=== PATIENT | female | born 1960 | race Caucasian/White ===

== ENCOUNTER 2020-05-12 17:32 | Emergency (ER) | payer OTHER, SELFPAY ==
--- NOTE | ~2020-05-12 | XR_ITS ---
EXAMINATION: XR femur LT min 2V INDICATION: Left femur pain TECHNIQUE: Two views of the left femur are obtained on four radiographs. COMPARISON: None available FINDINGS: Bone alignment is normal. There is no fracture. The soft tissues are unremarkable. There is mild osteoarthritis at the hip and knee. IMPRESSION: 1. No acute osseous abnormality. Reviewed, dictated and finalized at location A.
[2020-05-12 17:44] VITALS: BP 122/71; PULSE 78; RESP 18; TEMP 36.7; O2SAT 99
--- NOTE | 2020-05-12 18:15 | PC.NURSE ---
Patient taken to US prior to blood draw, will attempt to obtain blood when patient returns to room
[2020-05-12] MEDS: KETOROLAC (*BKC) 60 MG/2 ML VIAL IM (18:18)
--- NOTE | 2020-05-12 18:28 | ED.LOWEXIN ---
HPI - Extremity Injury (Lower) General Chief Complaint: Extremity Injury, Lower Stated Complaint: left thigh pain Time Seen by Provider: 05/12/20 17:49 Source: patient Mode of arrival: ambulatory Limitations: no limitations History of Present Illness HPI Narrative: This is a 59 year old female that presents to the ER for left thigh pain since an injury this afternoon. Reports she was using a Shayna to move cases of water. Reports the Shayna fell over onto her and landed on her left thigh. Reports since she has had pain in the thigh worse with movement and relived with rest. Denies hitting her head, loss of consciousness, other injuries or numbness. Related Data Home Medications Medication Instructions Recorded Confirmed phentermine 37.5 mg tablet 37.5 mg PO DAILY 09/17/19 Allergies Allergy/AdvReac Type Severity Reaction Status Date / Time No Known Allergies Allergy Verified 05/12/20 17:43 Review of Systems Review of Systems: Narrative: CONSTITUTIONAL: Denies fever MUSCULOSKELETAL: Reports myalgia. NEUROLOGIC: Denies numbness All systems reviewed & are unremarkable except as noted in HPI and below PMFSH Past Medical History Medical History (Updated 05/12/20 @ 20:05 by Monica Lucia PA-C) Acquired hypothyroidism Bilateral low back pain Depression GERD (gastroesophageal reflux disease) HLD (hyperlipidemia) Raynauds syndrome Social History Social History Smoking status: Former smoker Smoking end date: 11/17/10 Alcohol intake: current Gender identity (if verbalized by the patient): Female Exam Narrative: Exam Narrative: GENERAL: Well-appearing, well-nourished, and in no acute distress. HEAD: Normocephalic, atraumatic. EYES: EOMI. EXTREMITIES: Normal range of motion. No edema or obvious deformity. Normal DP pulses. Normal sensation. Compartments soft SKIN: Warm, dry, no rash. NEURO: No focal deficits. Alert and oriented x3. PSYCH: Normal mood and affect Course Vital Signs Vital signs: Vital Signs Temperature 98.1 F 05/12/20 17:44 Pulse Rate 78 05/12/20 17:44 Respiratory Rate 18 05/12/20 17:44 Blood Pressure 122/71 05/12/20 17:44 Pulse Oximetry 99 05/12/20 17:44 Temperature 98.1 F 05/12/20 17:44 Pulse Rate 78 05/12/20 17:44 Respiratory Rate 18 05/12/20 17:44 Blood Pressure 122/71 05/12/20 17:44 Pulse Oximetry 99 05/12/20 17:44 MDM - Extremity Injury (Lower) MDM Narrative Medical decision making narrative: Patient presents to the ER for left leg pain after an injury today. Patient is neurovascularly intact. Left femur x-rays without acute changes. Patient was instructed to rest, ice and take [id number] pain medication as needed. She is to follow-up with primary care doctor. She was given warnings to return to the ER Imaging Data Radiologist's impression: ITS Impressions Femur X-Ray 05/12/20 19:00 IMPRESSION: 1. No acute osseous abnormality. Critical Care Time Critical Care Time Critical Care Time: No Discharge Plan Discharge Clinical Impression: Leg pain, left Patient Disposition: Home, Self-Care Condition: Stable Instructions: Leg Pain (ED) Additional Instructions: Return to the emergency department if you experience fever, redness and swelling of your leg, numbness, or any other symptoms that are concerning to you Rest. Elevate. Ice to the area. [id number] pain medication as needed. Prescribed pain medication as needed Follow-up with your primary care doctor Prescriptions: No Action valacyclovir [Valtrex] 500 mg tablet 500 mg PO DAILY Qty: 14 RF: 0 estradiol 0.5 mg tablet 0.5 mg PO DAILY Qty: 90 RF: 0 phentermine 37.5 mg tablet 37.5 mg PO DAILY RF: 0 sertraline 100 mg tablet 100 mg PO DAILY Qty: 30 RF: 5 levothyroxine 25 mcg tablet 25 mcg PO DAILY Qty: 30 RF: 5 omeprazole 40 mg capsule,delaye
[2020-05-12 20:14] VITALS: BP 122/86; PULSE 76; RESP 20; O2SAT 98
== END 2020-05-12 20:16 | disposition home or self-care (01) ==
PROVIDERS: Emergency Provider Family Medicine; PCP Family Medicine
DX: M79.652 Pain in left thigh (principal); E03.9 Hypothyroidism, unspecified; K21.9 Gastro-esophageal reflux disease without esophagitis; E78.5 Hyperlipidemia, unspecified; I73.00 Raynaud's syndrome without gangrene; Z87.891 Personal history of nicotine dependence; W20.8XXA Other cause of strike by thrown, projected or falling object, initial encounter
CPT/HCPCS: 73552; 96372; 99283; J1885

== ENCOUNTER → 2021-03-19 14:56 | Outpatient (CLI) | payer OTHER, SELFPAY ==
--- NOTE | ~2021-03-19 | MR_ITS ---
EXAMINATION: MR lumbar spine wo con DATE: 03/19/2021 15:46 INDICATION: Lumbar radiculopathy. Chronic low back pain. TECHNIQUE: Magnetic resonance imaging (MRI) of the lumbar spine was performed without intravenous con trast. Sequences included sagittal T2-weighted FSE, sagittal STIR FSE, sagittal T1-weighted FSE, and axial T2-weighted FSE. COMPARISON: Lumbar spine MRI 08/31/2013 FINDINGS: There is 23 degrees dextroscoliosis of thoracolumbar spine. There is 3 mm retrolisthesis of T12 on L1 and L1 on L2. There are changes of anterior and posterior fusion procedures at L3-L4 with interbody devices and pedicle screws. There is severely decreased disc height from T12-L1 through L2- L3 and at L4-L5 and L5-S1. The distal spinal cord signal intensity is normal. The conus medullaris is at L1. The following disc levels are specifically discussed: L1-L2: The disc is bulging. There is severe bilateral facet joint osteoarthritis. There is moderate b ilateral neural foraminal stenosis. There is mild central canal stenosis. L2-L3: The disc is bulging. There is moderate bilateral facet joint hypertrophy. There is mild bilate ral neural foraminal stenosis. There is mild central canal stenosis. L3-L4: There is moderate bilateral facet joint hypertrophy. There is mild bilateral neural foraminal stenosis. There is no central canal stenosis. L4-L5: The disc is bulging and has an annular fissure. There is severe bilateral facet joint osteoart hritis. There is severe right and mild left neural foraminal stenosis. There is mild central canal st enosis. L5-S1: The disc is bulging and has an annular fissure. There is moderate right and severe left facet joint osteoarthritis. There is mild right and moderate left neural foraminal stenosis. There is mild central canal stenosis. IMPRESSION: 1. Severe lumbar spondylosis, worsened from 08/31/2013. 2. Anterior and posterior fusion procedures at L3-L4. 3. Thoracolumbar dextroscoliosis. Reviewed, dictated and finalized at location A.
== END ==
PROVIDERS: PCP Family Medicine; Visit Provider Nurse Practitioner Adult Health
DX: M47.26 Other spondylosis with radiculopathy, lumbar region (principal); Z98.1 Arthrodesis status
CPT/HCPCS: 72148

== ENCOUNTER 2021-08-03 11:11 | Outpatient (CLI) | payer OTHER, SELFPAY ==
--- NOTE | ~2021-08-03 | US_ITS ---
US abdomen limited INDICATION: Right upper quadrant pain PROCEDURE: Realtime right upper abdominal ultrasound. COMPARISON: No prior studies for comparison. FINDINGS: The pancreas is normal without focal mass or pancreatic ductal dilation. Liver echotexture is normal without focal mass or intrahepatic biliary dilatation. There is normal directional flow i n the portal vein. Gallbladder is surgically absent. Common bile duct measures 5 mm. IMPRESSION: 1: Unremarkable limited abdominal ultrasound postcholecystectomy. Reviewed, dictated and finalized at location A.
== END 2021-08-03 11:12 | disposition home or self-care (01) ==
LOC: ANHIMG 11:17
PROVIDERS: PCP Family Medicine; Visit Provider Family Medicine
DX: R79.89 Other specified abnormal findings of blood chemistry (principal)
CPT/HCPCS: 76705

== ENCOUNTER 2022-01-09 14:29 | Outpatient (CLI) | payer OTHER, SELFPAY ==
--- NOTE | ~2022-01-09 | XR_ITS ---
EXAMINATION: XR thoracic spine 3V DATE: 01/09/2022 15:05 INDICATION: Thoracic back pain. TECHNIQUE: 3 views of thoracic spine on 4 radiographs were obtained. COMPARISON: None. FINDINGS: There is 11 degrees levoscoliosis of thoracic spine. There is 20 degrees dextroscoliosis of thoracolumbar spine. There is severely decreased disc height at many levels in mid and lower thoraci c spine with endplate remodeling. There are endplate osteophytes at most levels. There are changes of posterior fusion procedure in lumbar spine. Surgical clips in the right upper quadrant are likely fr om cholecystectomy. IMPRESSION: 1. Severe thoracic spondylosis. 2. Scoliosis. Reviewed, dictated and finalized at location A. [place] SALES ASSOCIATE SEASONAL
== END 2022-01-09 14:30 | disposition home or self-care (01) ==
LOC: ANHIMG 14:35
PROVIDERS: PCP Family Medicine; Visit Provider Family Medicine
DX: M47.894 Other spondylosis, thoracic region (principal); M41.9 Scoliosis, unspecified
CPT/HCPCS: 72072

== ENCOUNTER 2022-10-16 15:08 | Outpatient (CLI) | payer OTHER, SELFPAY ==
--- NOTE | ~2022-10-16 | MM_ITS ---
EXAMINATION: MM screening yulissa BI w leila HISTORY: Screening mammogram TECHNIQUE: Craniocaudal and mediolateral oblique 3-D tomosynthesis images were obtained and synthetic 2-D images were generated. CAD analysis was submitted and interpreted. COMPARISON: 03/02/2019 bilateral screening mammogram BREAST PARENCHYMAL COMPOSITION: There are scattered areas of fibroglandular density. FINDINGS: There is no evidence of suspicious mass, calcification, or architectural distortion to sugg est malignancy in either breast. There has been no suspicious interval change. IMPRESSION: 1. No mammographic evidence of malignancy. 2. Recommend routine screening mammography in one year. BI-RADS Category 1: Negative Reviewed, dictated and finalized at location A. GN MAKER
== END 2022-10-16 15:09 | disposition home or self-care (01) ==
PROVIDERS: PCP Family Medicine; Visit Provider Family Medicine
DX: Z12.31 Encounter for screening mammogram for malignant neoplasm of breast (principal)
CPT/HCPCS: 77063; 77067

== ENCOUNTER 2022-10-28 00:50 | Day surgery (SDC) | payer OTHER, SELFPAY ==
[2022-10-18 10:10] VITALS: BMI 27.5
--- NOTE | 2022-10-25 16:11 | PM.HPGS ---
History of Present Illness History of Present Illness Consent: Risks, benefits, and alternatives have been discussed and questions answered. Patient agrees to proceed with procedure. Chief complaint: neoplasm screening Narrative: Tamara Palencia is a 62 year old female Referred for colon cancer screening. Her last colonoscopy was 10 years ago. Review of Systems Review of Systems: All systems reviewed & are unremarkable except as noted in HPI and below PMFSH Past Medical History Medical History Acquired hypothyroidism Bilateral low back pain Depression GERD (gastroesophageal reflux disease) HLD (hyperlipidemia) Raynauds syndrome Social History Social History Smoking status: Current every day smoker Tobacco type: e-cigarettes/vaping Smoking end date: 11/17/10 Alcohol intake: current Drinks per week: 3 Alcohol use details: social drinker Substance use: current Substance use type: marijuana Last use: weekly for sleep Living arrangements: alone Gender identity (if verbalized by the patient): Female Spiritual care concerns: No Meds Home Medications and Allergies Home Medications Medication Instructions Recorded Confirmed Type sertraline 100 mg tablet 100 mg PO DAILY #90 tabs 04/29/22 10/18/22 Rx estradiol 0.5 mg tablet 0.5 mg PO DAILY #90 tabs 07/02/22 10/18/22 Rx levothyroxine 50 mcg tablet 50 mcg PO DAILY #30 tabs 07/23/22 10/18/22 Rx omeprazole 40 mg capsule,delayed 40 mg PO DAILY 10/18/22 10/18/22 History release valacyclovir 500 mg tablet 500 mg PO 3XW 10/18/22 10/18/22 History hydrocodone 5 mg-acetaminophen 325 1 tablet PO Q8H PRN pain #60 tabs 10/25/22 10/28/22 Rx mg tablet Allergies Allergy/AdvReac Type Severity Reaction Status Date / Time No Known Allergies Allergy Verified 10/18/22 10:11 Exam Const: General: alert Orientation/consciousness: patient oriented x3 Resp: Auscultation: clear to auscultation bilaterally Cardio: Rhythm: regular rhythm GI: GI Palp: Yes Soft to palpation and No Tenderness to palpation present (GI) Neuro: General: patient oriented x3 Assessment and Plan Assessment and plan (1) Colon cancer screening: Code(s): Z12.11 - Encounter for screening for malignant neoplasm of colon Status: Acute Assessment and Plan: Colonoscopy with possible biopsy or polypectomy or cautery or injection of substances.
[2022-10-28 07:41] VITALS: BP 110/80; PULSE 83; RESP 19; TEMP 36.2; O2SAT 99
[2022-10-28] MEDS: LACTATED RINGERS 1,000 ML 150 ML IV CONT (07:48)
--- NOTE | 2022-10-28 08:27 | P.PNAN_ITS ---
Anes - Initial Pre Proc Eval Procedure: Operation Date: 10/28/22 09:00 Proposed Procedures p Screening Colonoscopy - Eliecer Jean MD Date/Time: 10/28/22 08:27 Surgeon: Eliecer Jean MD Pre Op Diagnosis: neoplasm screening Patient Data Age: 62 Gender: F Height: 1.6 m Weight: 68.2 kg Last Vital Signs Temp 97.1 F L 10/28/22 07:41 Pulse 83 10/28/22 07:41 Resp 19 10/28/22 07:41 BP 110/80 10/28/22 07:41 Pulse Ox 99 10/28/22 07:41 O2 Del Method Room Air 10/28/22 07:41 Allergies Allergy/AdvReac Type Severity Reaction Status Date / Time No Known Allergies Allergy Verified 10/18/22 10:11 Home Medications Medication Instructions Recorded Confirmed Type sertraline 100 mg tablet 100 mg PO DAILY #90 tabs 04/29/22 10/18/22 Rx estradiol 0.5 mg tablet 0.5 mg PO DAILY #90 tabs 07/02/22 10/18/22 Rx levothyroxine 50 mcg tablet 50 mcg PO DAILY #30 tabs 07/23/22 10/18/22 Rx omeprazole 40 mg capsule,delayed 40 mg PO DAILY 10/18/22 10/18/22 History release valacyclovir 500 mg tablet 500 mg PO 3XW 10/18/22 10/18/22 History hydrocodone 5 mg-acetaminophen 325 1 tablet PO Q8H PRN pain #60 tabs 10/25/22 10/28/22 Rx mg tablet Patient hx anesthesia problems: none Family hx anesthesia problems: none Results Review: All pre-operative results and documents have been reviewed as part of the pre- operative evaluation. [facility] Past Medical History Medical History Acquired hypothyroidism Bilateral low back pain Depression GERD (gastroesophageal reflux disease) HLD (hyperlipidemia) Raynauds syndrome Social History Social History Smoking status: Current every day smoker Tobacco type: e-cigarettes/vaping Smoking end date: 11/17/10 Alcohol intake: current Drinks per week: 3 Alcohol use details: social drinker Substance use: current Substance use type: marijuana Last use: weekly for sleep Living arrangements: alone Gender identity (if verbalized by the patient): Female Spiritual care concerns: No Anes - Eval Final PreProcedure Day of Procedure 10/28/22 08:27 Patient weight: normal Heart: regular rate and rhythm Lungs: clear to auscultation Airway: Mallampati scale class II Neurological: alert and oriented Last oral intake: >/= 8 hours ASA classification: II Emergent: no Anesthetic plan: proceed Anesthesia type and monitoring: general GIVS and standard monitoring Results Review: All pre-operative results and documents have been reviewed as part of the pre- operative evaluation. Informed Consent: The patient's anesthetic plan and its attendant risks and benefits were discussed with the patient/family/POA. Questions were solicited and answers provided to the satisfaction of the patient/family/POA.
[2022-10-28 09:02] VITALS: BP 85/58; PULSE 67; RESP 20; O2SAT 95
[2022-10-28 09:12] VITALS: BP 104/67; PULSE 64; RESP 20; O2SAT 99
[2022-10-28 09:22] VITALS: BP 109/74; PULSE 56; RESP 16; O2SAT 100
== END 2022-10-28 09:32 | disposition home or self-care (01) ==
PROVIDERS: PCP Family Medicine; Visit Provider Internal Medicine Gastroenterology
PROC: 0DJD8ZZ Inspection of Lower Intestinal Tract, Via Natural or Artificial Opening Endoscopic (ICD-10-PCS; CPT 45378; principal; 2022-10-28 09:00)
DX: Z12.11 Encounter for screening for malignant neoplasm of colon (principal); K64.8 Other hemorrhoids; E03.9 Hypothyroidism, unspecified; K21.9 Gastro-esophageal reflux disease without esophagitis; F32.A Depression, unspecified; F17.290 Nicotine dependence, other tobacco product, uncomplicated; F12.90 Cannabis use, unspecified, uncomplicated
CPT/HCPCS: 45378; J2704; J7120

== ENCOUNTER 2023-09-19 17:09 | Outpatient (CLI) | payer OTHER, SELFPAY ==
--- NOTE | ~2023-09-19 | CT_ITS ---
EXAMINATION: CT lung screening DATE: 09/19/2023 17:37 INDICATION: Personal history of nicotine dependence TECHNIQUE: Computed tomography (CT) of the chest was performed without intravenous contrast. The dose -length product was 78.78 mGy-cm. Automated exposure control and iterative reconstruction technique w ere employed. COMPARISON: Chest x-ray dated 03/30/2014 FINDINGS: No significant pleural or pericardial effusion. Heart size normal. No thoracic lymphadenopa thy. Upper abdomen is unremarkable. There are cholecystectomy clips. Mild atherosclerosis of the aort a. There are a few scattered bilateral pulmonary nodules measuring 2 mm or less. There is a 4 mm fiss ural nodule on the right, image 56. No endobronchial lesions. No focal airspace consolidation. No pne umothorax. Moderate thoracic and upper lumbar spondylosis. IMPRESSION: 1. Lung-RADS category 2: Benign appearance or behavior. Continue annual screening with noncontrast lo w-dose chest CT in 12 months. Reviewed, dictated and finalized at location A. IMPRESSION: 1. Lung-RADS category 2: Benign appearance or behavior. Continue annual screeni ng with noncontrast low-dose chest CT in 12 months.
== END 2023-09-19 17:10 | disposition home or self-care (01) ==
PROVIDERS: PCP Family Medicine; Visit Provider Family Medicine
DX: Z12.2 Encounter for screening for malignant neoplasm of respiratory organs (principal); Z87.891 Personal history of nicotine dependence
CPT/HCPCS: 71271

== ENCOUNTER 2023-12-29 16:07 | Outpatient (CLI) | payer OTHER, SELFPAY ==
--- NOTE | ~2023-12-29 | XR_ITS ---
EXAMINATION: XR shoulder LT min 2V DATE: 12/29/2023 16:29 INDICATION: Left shoulder pain TECHNIQUE: AP internally and externally rotated, AP oblique externally rotated and transscapular Y vi ews of the left shoulder were obtained. COMPARISON: None FINDINGS: Normal alignment. No fracture.Mild left glenohumeral and acromioclavicular osteoarthritis. Calcified left thyroid nodule which projects over the left apex. Soft tissues are otherwise unremarkable. Line ar discoid atelectasis/scarring at the lateral left midlung zone. Severe thoracic spondylosis. IMPRESSION: Mild left glenohumeral and acromioclavicular osteoarthritis. Reviewed, dictated and finalized at location A. JOCKEY
--- NOTE | ~2023-12-29 | XR_ITS ---
Cervical Spine: AP, lateral, open-mouth views Clinical History: Pain Findings: The normal lordotic curve is maintained. No fracture or subluxation identified. There is mo derate to advanced degenerative disc narrowing throughout the cervical spine. There are extensive ant erior osteophytes from C3 through C6. There is advanced facet arthropathy at C2-C3, with mild to mode rate facet arthropathy narrowing of the cervical spine. Pre-vertebral soft tissues are unremarkable. Impression: Moderate to advanced degenerative spondylosis, as above. Reviewed, dictated and finalized at location M. CAL LIBRARIAN Impression: Moderate to advanced degenerative spondylosis, as above.
== END 2023-12-29 16:08 | disposition home or self-care (01) ==
LOC: ANHIMG 16:10
PROVIDERS: PCP Family Medicine; Visit Provider Physician Assistant Medical
DX: M47.892 Other spondylosis, cervical region (principal); M19.012 Primary osteoarthritis, left shoulder
CPT/HCPCS: 72040; 73030

== ENCOUNTER → 2024-01-08 13:15 | Outpatient (CLI) | payer OTHER, SELFPAY ==
--- NOTE | ~2024-01-08 | US_ITS ---
EXAMINATION: US thyroid DATE: 01/08/2024 13:29 INDICATION: Left thyroid nodule. TECHNIQUE: Multiple ultrasound images of the thyroid were obtained. COMPARISON: None. FINDINGS: The right thyroid lobe measures 3.7 x 1.4 x 1.2 cm. The left thyroid lobe measures 3.5 x 1.2 x 1.3 c m. The thyroid demonstrates heterogeneous echogenicity and increased vascularity. In the left thyroi d lobe, there is a 12 mm solid, hypoechoic, wider than tall nodule with ill-defined margin with perip heral calcifications (TI-RADS TR4). IMPRESSION: 1. Heterogeneous, hypervascular thyroid, likely chronic lymphocytic (Mckayla) thyroiditis. 2. Left thyroid nodule. Thyroid ultrasound is recommended in one year. Reviewed, dictated and finalized at location E. ROASTER IMPRESSION: 1. Heterogeneous, hypervascular thyroid, likely chronic lymphocytic (Mckalya) thyroiditis. 2. Left thyroid nodule. Thyroid ultrasound is recommended in one year.
== END ==
PROVIDERS: PCP Physician Assistant Medical; Visit Provider Physician Assistant Medical
DX: E04.1 Nontoxic single thyroid nodule (principal)
CPT/HCPCS: 76536

== ENCOUNTER 2025-06-23 10:37 | Outpatient (CLI) | payer OTHER, SELFPAY ==
--- NOTE | ~2025-06-23 | XR_ITS ---
EXAMINATION: XR chest 2V 06/23/2025 10:50 INDICATION: Hemoptysis PROCEDURE: 2 view chest COMPARISON: No prior studies for comparison. FINDINGS: The lungs are clear. The cardiomediastinal silhouette is within normal limits. There are no pleural effusions. There is no pneumothorax suspected. IMPRESSION: 1: NO ACUTE CARDIOPULMONARY DISEASE. Reviewed, dictated and finalized at location A.
--- NOTE | ~2025-06-23 | CT_ITS ---
CLINICAL INDICATION: Hemoptysis COMPARISON: 09/19/2023. TECHNIQUE: Multiple contiguous axial images of the chest was performed without the administration of intravenous contrast. This CT examination was performed utilizing dose reduction techniques. DLP: 137 mGy-cm FINDINGS/OBSERVATIONS: LUNG: Cylindrical bronchiectasis is identified, unchanged from 2022. Interval development of groundglass opacification within the medial margin of the right middle lobe. A 5 mm nodule is detected centrally within this abnormality (axial series, image 57). Redemonstration of a 3 mm nodule within the intrafissural space of the right lower lobe, unchanged from prior. The remainder of the lungs are clear. HEART: The heart is of normal size, without pericardial effusion. MEDIASTINUM: No pathologically enlarged or morphologically suspicious lymph nodes are identified within the medias tinum, bilateral axilla, within the soft tissues of the anterior chest wall. SOFT TISSUES OF THE CHEST: Unremarkable. BONES OF THE CHEST: No acute fracture. No lytic or blastic lesions are identified. UPPER ABDOMEN: The gallbladder is surgically absent. A small hiatal hernia is present. IMPRESSION: Interval progression of the cylindrical bronchiectasis, identified on 2022 examination. Groundglass opacification within the medial margin of the right middle lobe with a 5 mm nodule centra lly within this abnormality for which follow-up in 3 months is recommended, with a noncontrast enhanc ed CT (as per Fleischner guidelines). Redemonstration of the intrafissural nodule, likely a intrafissural lymph node, unchanged from prior. Reviewed, dictated and finalized at location A. IMPRESSION: Interval progression of the cylindrical bronchiectasis, identified on 2022 exam ination. Groundglass opacification within the medial margin of the right middle lobe wit h a 5 mm nodule centrally within this abnormality for which follow-up in 3 meaghan hs is recommended, with a noncontrast enhanced CT (as per Fleischner guidelines ). Redemonstration of the intrafissural nodule, likely a intrafissural lymph node, unchanged from prior.
--- OUTSIDE RECORDS SUMMARY | 2025-06-23 10:43 | XMS_ITS | Clinical Summary ---
Author Organization [facility] Address [address] [place] [address] Care Team Providers Care Senior Accountant Analyst Name Role Phone Unavailable Primary Care Provider Unavailabl e Social History Tobacco Use Types Packs/Day Years Used Date Smoking Tobacco: Never Assessed Comments Unknown Sex and Gender Information Value Date Recorded Sex Assigned at Not on file Legal Sex Female 10:28 PM CDT Gender Identity Not on file Sexual Orientation Not on file Plan of Treatment Health Maintenance Due Date Last Done Comments Hepatitis C Virus (HCV) Screening 1960 TdaP Immunization 1960 Pap Smear 1981 Cervical Cancer Screening (CCS) 1990 HPV/Cotest 1990 Cologuard 2005 Colonoscopy 2005 Colorectal Cancer Screening 2005 Immunochemical Fecal Occult Blood 2005 Pneumococcal Immunization (5 0+ years) (1 of 1 - PCV) 2010 Zoster Immunization (1 of 2) 2010 SARS-COV-2 Immunization ( season) 2024 09/27/2021, 03/04/2021, 02/11/2021 Influenza Immunization (#1) 2025 Respiratory Syncytial Virus (RSV) Immunization (Adult) (1 - 1-dose 75+ series) 2035 Hepatitis B Immunization Aged Out No longer eligible based on patient's age to complete this topic Human Papillomavirus (HPV) Immunization Aged Out No longer eligible b ased on patient's age to complete this topic Meningococcal Immunization (ACWY) Aged Out No longer eligible b ased on patient's age to complete this topic Rotavirus Immunization Aged Out No lo nger eligible based on patient's age to complete this topic
--- OUTSIDE RECORDS SUMMARY | 2025-06-23 10:43 | XMS_ITS | Clinical Summary ---
Author Organization [facility] Address [facility] [place] [address] Care Team Providers Care Product Trainer Name Role Phone Unavailable Primary Care Provider Unavailabl e Social History Tobacco Use Types Packs/Day Years Used Date Smoking Tobacco: Never Assessed Comments Unknown Sex and Gender Information Value Date Recorded Sex Assigned at Not on file Legal Sex Female 7:36 PM CDT Gender Identity Not on file Sexual Orientation Not on file Plan of Treatment Health Maintenance Due Date Last Done Comments Cervical Cancer Screening Pa p Smear (Age 30 to 64) Every 3 Years 1960 Colorectal Cancer Screening Colonoscopy (10 Years) 1960 Annual Physical 1963 Hepatitis C 1978 DTaP, Tdap and Td Vaccines ( 1 - Tdap) 1979 Cervical Cancer Screening Pa p with HPV Testing (Age 30 to 64) Every 5 Years 1990 Cervical Cancer Screening with HPV 1990 Mammogram Screening 2000 Pneumococcal Vaccine: 50+ Ye ars (1 of 1 - PCV) 2010 Zoster Vaccines (1 of 2) 2010 COVID-19 Vaccine (2023-2 5 season) 2024 RSV Immunization or 60+ Years (1 - 1-dose 75+ series) 2035 Meningococcal B Vaccine Aged Out No l onger eligible based on patient's age to complete this topic Meningococcal Vaccine Aged Out No galina handy eligible based on patient's age to complete this topic RSV Immunizations Under 20 Months Aged Out No longer eligible based on patient's age to complete this topic
== END 2025-06-23 10:38 | disposition home or self-care (01) ==
PROVIDERS: PCP Family Medicine
DX: R04.2 Hemoptysis (principal); Z87.891 Personal history of nicotine dependence; R91.8 Other nonspecific abnormal finding of lung field
CPT/HCPCS: 71046; 71260; Q9967

== ENCOUNTER 2025-09-05 07:33 | Day surgery (SDC) | payer OTHER, SELFPAY ==
[2025-07-13 13:09] VITALS: BMI 23.7
[2025-08-29 13:24] VITALS: BMI 23.0
--- OUTSIDE RECORDS SUMMARY | 2025-09-05 07:45 | XMS_ITS | Clinical Summary ---
Author Organization [facility] Address [address] [place] [address] Care Team Providers Care Flame Degreaser Name Role Phone Unavailable Primary Care Provider [...] 2010 Zoster Immunization (1 of 2) 2010 Influenza Immunization (#1) 2025 SARS-COV-2 Immunization ( season) 2025 09/27/2021, 03/04/2021, 02/11/2021 Respiratory Syncytial Virus (RSV) Immunization (Adult) (1 [...]
--- OUTSIDE RECORDS SUMMARY | 2025-09-05 07:45 | XMS_ITS | Clinical Summary ---
Author Organization [facility] Address [facility] [place] [address] Care Team Providers Care Onsite Case Manager Name Role Phone Unavailable Primary Care Provider Unavailabl e Social History Tobacco Use Types Packs/Day Years Used Date Smoking Tobacco: Never Assessed Comments Unknown Sex and Gender Information Value Date Recorded Sex Assigned at Not on file Legal Sex Female 7:36 PM CDT Gender Identity Not on file Sexual Orientation Not on file Plan of Treatment Health Maintenance Due Date Last Done Comments Colorectal Cancer Screening Colonoscopy (10 Years) 1960 Hepatitis C 1978 DTaP, Tdap and Td Vaccines ( 1 - Tdap) 1979 Mammogram Screening 2000 Pneumococcal Vaccine: 50+ Ye ars (1 of 1 - PCV) 2010 Zoster Vaccines (1 of 2) 2010 COVID-19 Vaccine ( - 2023-2 5 season) 2025 Dexa Scan (General) 2025 Influenza Adult (#1) 2025 RSV Immunization or 60+ Years (1 - [...]
[2025-09-05 07:49] VITALS: BP 98/77; PULSE 67; RESP 15; TEMP 37.1; O2SAT 100
[2025-09-05] MEDS: SIMETHICONE ORAL SUSPENSION 20 MG/0.3 ML 30 ML BOTTLE 1.8 ML PO (07:54)
[2025-09-05] MEDS: LACTATED RINGERS 1,000 ML 150 ML IV CONT (07:55)
--- NOTE | 2025-09-05 08:50 | PM.IMHP ---
H&P: HPI History of Present Illness Date/Time: 09/05/25 08:50 Chief Complaint: GERD Narrative: This patient has been suffering from heartburn several years, currently controlled with omeprazole. She denies dysphagia. A few weeks ago, she spitted small amount of blood therefore she is referred for EGD. Review of Systems Review of Systems: All systems reviewed & are unremarkable except as noted in HPI and below PMFSH Past Medical History Medical History Vitamin D deficiency HLD (hyperlipidemia) GERD (gastroesophageal reflux disease) Raynauds syndrome Acquired hypothyroidism Bilateral low back pain Depression Social History Social History Smoking status: Former smoker Tobacco type: e-cigarettes/vaping Smoking end date: 11/17/10 Alcohol intake: current Drinks per week: 3 Alcohol use details: social drinker Substance use: current Substance use type: marijuana Last use: weekly for sleep Living arrangements: alone Occupation/Education: occupation Gender identity (if verbalized by the patient): Female Spiritual care concerns: No Meds Home Medications and Allergies Home Medications ?Medication ?Instructions ?Recorded ?Confirmed ?Type ergocalciferol (vitamin D2) 1,250 1,250 mcg PO WEEKLY #12 caps 06/22/25 09/05/25 Rx mcg (50,000 unit) capsule estradiol 0.5 mg tablet 0.5 mg PO DAILY #90 tabs 06/22/25 09/05/25 Rx omeprazole 40 mg capsule,delayed 40 mg PO DAILY #90 caps 06/22/25 09/05/25 Rx release sertraline 100 mg tablet 100 mg PO DAILY #90 tabs 06/22/25 09/05/25 Rx levothyroxine 88 mcg tablet 88 mcg PO DAILY #30 tabs 06/23/25 09/05/25 Rx hydrocodone 5 mg-acetaminophen 325 1 tablet PO Q8H PRN pain #60 tabs 08/31/25 09/05/25 Rx mg tablet valacyclovir 500 mg tablet See Rx Instructions .Route 08/31/25 09/05/25 Rx .COMPLEX #39 tabs Allergies Allergy/AdvReac Type Severity Reaction Status Date / Time No Known Allergies Allergy Verified 09/05/25 07:48 Vital Signs Vital Signs - 24 hr 09/05/25 07:49 Temperature 98.7 F Pulse Rate 67 Respiratory Rate 15 Blood Pressure 98/77 L Pulse Oximetry 100 Oxygen Delivery Room Air Exam Const: General: cooperative and healthy appearing Resp: Effort & Inspection: normal respiratory effort and able to speak in complete sentences Auscultation: clear to auscultation bilaterally Cardio: Rate: regular rate Rhythm: regular rhythm GI: Inspection: normal to inspection GI Palp: No No hepatosplenomegaly present Auscultation: normal bowel sounds Rectal Exam: deferred Skin: General skin exam: normal color Psych: Appearance: grossly normal Mental Status: mental status grossly normal Assessment and Plan Assessment and plan (1) GERD (gastroesophageal reflux disease): Qualifiers: Esophagitis presence: without esophagitis Qualified Code(s): K21.9 - Gastro-esophageal reflux disease without esophagitis Code(s): K21.9 - Gastro-esophageal reflux disease without esophagitis Status: Acute Assessment and Plan: The patient is deemed a good candidate for the procedure. Consent signed. Will proceed.
--- NOTE | 2025-09-05 08:53 | WPDANESEPPF ---
Anes - Initial Pre Proc Eval Procedure: Operation Date: 09/05/25 09:30 Proposed Procedures p Esophagogastroduodenoscopy - Alan Mosquera MD Date/Time: 09/05/25 08:53 Surgeon: Alan Mosquera MD Pre Op Diagnosis: dysphagia Patient Data Age: 65 Gender: F Height: 1.6 m Weight: 61.9 kg Last Vital Signs Temp 37.1 C 09/05/25 07:49 Pulse 67 09/05/25 07:49 Resp 15 09/05/25 07:49 BP 98/77 L 09/05/25 07:49 Pulse Ox 100 09/05/25 07:49 O2 Del Method Room Air 09/05/25 07:49 Allergies Allergy/AdvReac Type Severity Reaction Status Date / Time No Known Allergies Allergy Verified 09/05/25 07:48 Home Medications ?Medication ?Instructions ?Recorded ?Confirmed ?Type ergocalciferol (vitamin D2) 1,250 1,250 mcg PO WEEKLY #12 caps 06/22/25 09/05/25 Rx mcg (50,000 unit) capsule estradiol 0.5 mg tablet 0.5 mg PO DAILY #90 tabs 06/22/25 09/05/25 Rx omeprazole 40 mg capsule,delayed 40 mg PO DAILY #90 caps 06/22/25 09/05/25 Rx release sertraline 100 mg tablet 100 mg PO DAILY #90 tabs 06/22/25 09/05/25 Rx levothyroxine 88 mcg tablet 88 mcg PO DAILY #30 tabs 06/23/25 09/05/25 Rx hydrocodone 5 mg-acetaminophen 325 1 tablet PO Q8H PRN pain #60 tabs 08/31/25 09/05/25 Rx mg tablet valacyclovir 500 mg tablet See Rx Instructions .Route 08/31/25 09/05/25 Rx .COMPLEX #39 tabs Patient hx anesthesia problems: none Family hx anesthesia problems: none Results Review: All pre-operative results and documents have been reviewed as part of the pre-operative evaluation. [facility] Past Medical History Medical History Vitamin D deficiency HLD (hyperlipidemia) GERD (gastroesophageal reflux disease) Raynauds syndrome Acquired hypothyroidism Bilateral low back pain Depression Social History Social History (Reviewed 07/12/25 @ 15:27 by Jenifer Barbour Smoking status: Former smoker Tobacco type: e-cigarettes/vaping Smoking end date: 11/17/10 Alcohol intake: current Drinks per week: 3 Alcohol use details: social drinker Substance use: current Substance use type: marijuana Last use: weekly for sleep Living arrangements: alone Occupation/Education: occupation Gender identity (if verbalized by the patient): Female Spiritual care concerns: No Anes - Eval Final PreProcedure Day of Procedure 09/05/25 08:53 Heart: regular rate and rhythm Lungs: clear to auscultation Airway: Mallampati scale class II Neurological: alert and oriented Last oral intake: >/= 8 hours ASA classification: II Anesthetic plan: proceed Anesthesia type and monitoring: monitored anesthesia care Results Review: All pre-operative results and documents have been reviewed as part of the pre-operative evaluation. Informed Consent: The patient's anesthetic plan and its attendant risks and benefits were discussed with the patient/family/POA. Questions were solicited and answers provided to the satisfaction of the patient/family/POA.
[2025-09-05 09:11] VITALS: BP 98/62; PULSE 63; RESP 15; O2SAT 95
--- NOTE | 2025-09-05 09:14 | WPDANESPN ---
Anes - Prog Note Post-Op Date/Time: 09/05/25 09:14 Cardiovascular status: normal Respiratory status: normal Airway patency: baseline Mental status: baseline Post-Op hydration status: normal Vital Signs: Last Vital Signs Temp 37.1 C 09/05/25 07:49 Pulse 67 09/05/25 07:49 Resp 15 09/05/25 07:49 BP 98/77 L 09/05/25 07:49 Pulse Ox 100 09/05/25 07:49 O2 Del Method Room Air 09/05/25 07:49 Pain Score (VAS): 0 I/O: Intake & Output 09/04/25 09/05/25 09/05/25 23:59 07:59 15:59 Intake Total 0 Balance 0 Patient Feedback: Patient satisfied with anesthetic care.
[2025-09-05 09:21] VITALS: BP 109/67; PULSE 54; RESP 15; O2SAT 95
[2025-09-05 09:31] VITALS: BP 111/70; PULSE 58; RESP 16; O2SAT 99
== END 2025-09-05 09:44 | disposition home or self-care (01) ==
PROVIDERS: PCP Family Medicine; Referring Provider Family Medicine; Visit Provider Internal Medicine Gastroenterology
PROC: 0DJ08ZZ Inspection of Upper Intestinal Tract, Via Natural or Artificial Opening Endoscopic (ICD-10-PCS; CPT 43239; principal; 2025-09-05 09:30)
DX: K21.9 Gastro-esophageal reflux disease without esophagitis (principal); K29.30 Chronic superficial gastritis without bleeding
CPT/HCPCS: 43239

== ENCOUNTER 2025-09-05 08:26 | Outpatient (NON) | payer OTHER, SELFPAY ==
--- NOTE | 2025-09-05 | S_PTH ---
PATIENT: Tamara Palencia LOC: [facility] U#:[id number] AGE/SX: 65/F ROOM: RE09/05/[address]: Alan Mosquera MD : 1960 BED: DIS: 09/05/2025 SPEC #: [id number] RECD: 09/06/25 08:54 STATUS: TERESA REQ #: [id number] KENNY: 09/05/25 00:[address]: Alan Mosquera DEPT: [facility] Surgical RECD BY: Garrett Fang ENTERED: 09/06/25 08:56 SP TYPE: Surgical OTHR DR: Otis Malcolm MD Tissues: A - Gastric Biopsy B - Gastric Biopsy Procedures: Hematoxylin and Eosin Stain Gross and Microscopic Level 4
--- OUTSIDE RECORDS SUMMARY | 2025-09-06 08:48 | XMS_ITS | Clinical Summary ---
Author Organization Address [address] [place] [address] Care Team Providers Care Teacher Physically Impaired Name Role Phone Unavailable Primary Care Provider [...]
== END 2025-09-05 08:27 | disposition home or self-care (01) ==
LOC: ANHLAB 09-06 08:28
PROVIDERS: PCP Family Medicine; Visit Provider Internal Medicine Gastroenterology
DX: K21.9 Gastro-esophageal reflux disease without esophagitis (principal)
CPT/HCPCS: 88305